=== PATIENT | female | born 1995 | race Caucasian/White ===

== ENCOUNTER 2017-05-04 14:32 | Emergency (ER) | payer OTHER ==
[~2017-05-04] VITALS: Ht 170.2 cm; Wt 51.0 kg
[~2017-05-04 14:32] MED LIST: Docusate Sod/Senna PO; IBUP600 PO
[2017-05-04 14:43] VITALS: BP 121/74; PULSE 94; RESP 18; TEMP 99.5; O2SAT 98
[2017-05-04] MEDS ORDERED: IBUP400T20 PO (14:53)
[2017-05-04] MEDS ORDERED: ADVI200C3 (14:53)
[2017-05-04] MEDS ORDERED: SODIUM CHLOR 0.9% 1000 ML INJ 1,000 ML IV ONE (15:11)
[2017-05-04] MEDS ORDERED: ONDANSETRON HCL 4 MG/2 ML VIAL IVP ONE (15:15)
[2017-05-04] MEDS ORDERED: SODIUM CHLORIDE 0.9% FLUSH 10 ML FLUSH IVF PRN (15:15)
[2017-05-04] MEDS ORDERED: HYDROmorphone HCL PF 1 MG/ML VIAL IVS ONE (15:15)
--- NOTE | 2017-05-04 15:15 | PD ---
HPI Chief Complaint: Headache Time Seen by Provider: 15:11 Travel History International Travel<30 days: No Contact w/Intl Traveler<30days: No Traveled to known affect area: No History of Present Illness HPI Patient presents with complaints of a frontal headache for one day. Denies any history of migraines. Positive nausea and vomiting. Positive photophobia. Denies aura. Currently on her menses, denies . Denies any head trauma. Reports it is the worst headache she's ever had. PFSH Past Medical History Migraines: Yes Tetanus Vaccination: < 5 Years Influenza Vaccination: Yes ?: Not LMP: NOW Past Surgical History Surgical History: No Previous Surgery Social History Alcohol Use: No Tobacco Use: No Substance Use: No Allergies-Medications (Allergen,Severity, Reaction): Coded Allergies: No Known Allergies (Unverified , 05/04/17) Reported Meds & Prescriptions Reported Meds & Active Scripts Active Reported Ibuprofen 400 Mg Tab 400 Mg PO Q4H PRN Advil Migraine (Ibuprofen) 200 Mg Cap Review of Systems General / Constitutional: No: Fever Eyes: No: Visual changes HENT: No: Headaches Cardiovascular: No: Chest Pain or Discomfort Respiratory: No: Shortness of Breath Gastrointestinal: No: Abdominal Pain Genitourinary: No: Dysuria Musculoskeletal: No: Pain Skin: No Rash Neurologic: No: Weakness Psychiatric: No: Depression Endocrine: No: Polydipsia Hematologic/Lymphatic: No: Easy Bruising Physical Exam Narrative GENERAL: Well-nourished, well-developed patient. SKIN: Focused skin assessment warm/dry. HEAD: Normocephalic. EYES: No scleral icterus. No injection or drainage. NECK: Supple, trachea midline. No JVD or lymphadenopathy. CARDIOVASCULAR: Regular rate and rhythm without murmurs, gallops, or rubs. RESPIRATORY: Breath sounds equal bilaterally. No accessory muscle use. GASTROINTESTINAL: Abdomen soft, non-tender, nondistended. MUSCULOSKELETAL: No cyanosis, or edema. BACK: Nontender without obvious deformity. No CVA tenderness. Data Data Last Documented VS Vital Signs Date Time Temp Pulse Resp B/P (MAP) Pulse Ox O2 Delivery O2 Flow Rate FiO2 05/04/17 15:30 83 17 112/60 (77) 05/04/17 14:43 99.5 98 Orders Orders Ecg Monitoring (05/04/17 15:11) Iv Access Insert/Monitor (05/04/17 15:11) Oximetry (05/04/17 15:11) Sodium Chloride 0.9% Flush (Ns Flush) (05/04/17 15:15) Ondansetron Inj (Zofran Inj) (05/04/17 15:15) Hydromorphone Pf Inj (Dilaudid Pf Inj) (05/04/17 15:15) Sodium Chlor 0.9% 1000 Ml Inj (Ns 1000 M (05/04/17 15:11) Ct Brain W/O Iv Contrast(Rout) (05/04/17 15:15) MDM Medical Decision Making Medical Screen Exam Complete: Yes Emergency Medical Condition: Yes Differential Diagnosis CVA, migraine headache, sinusitis Narrative Course Assessment and plan discussed with patient at bedside. Physician Communication Physician Communication Case discussed and care transferred to Amos Singh MD May 04, 2017 15:15
[2017-05-04 15:30] VITALS: BP 112/60; PULSE 83; RESP 17
--- NOTE | 2017-05-04 16:14 | RADRPT ---
EXAM DATE/TIME: 05/04/2017 15:52 [facility] COMPARISON: No previous studies available for comparison. INDICATIONS : Severe headache with vomiting. RADIATION DOSE: 59.73 CTDIvol (mGy) MEDICAL HISTORY : None SURGICAL HISTORY : None. ENCOUNTER: Initial ACUITY: 2 days PAIN SCALE: 8/10 LOCATION: cranial TECHNIQUE: Multiple contiguous axial images were obtained of the head. Using automated exposure control and adj ustment of the mA and/or kV according to patient size, radiation dose was kept as low as reasonably a chievable to obtain optimal diagnostic quality images. DICOM format image data is available electro nically for review and comparison. FINDINGS: CEREBRUM: The ventricles are normal for age. No evidence of midline shift, mass lesion, hemorrhage or acute in farction. No extra-axial fluid collections are seen. POSTERIOR FOSSA: The cerebellum and brainstem are intact. The 4th ventricle is midline. The cerebellopontine angle i s unremarkable. EXTRACRANIAL: The visualized portion of the orbits is intact. SKULL: The calvaria is intact. No evidence of skull fracture. CONCLUSION: Normal examination. Korey Guerra MD on May 04, 2017 at 16:09 Board Certified Radiologist. This report was verified electronically.
--- NOTE | 2017-05-04 16:26 | PD ---
Physical Exam Date Seen by Provider: May 04, 2017 Time Seen by Provider: 16:25 Narrative This 22-year-old female is complaining of headache. She's been seen initially by Dr. Sherman who ordered a CT scan which is negative. His seat some Dilaudid IV fluids and reports some improvement but she also feels some ongoing headache. I will add Toradol and Compazine to the regimen. She does not have a history of migraines but she says she has an aunt that has migraines and she believes her mother also had her. Patient was seen by initially by Dr. Sherman who ordered a CT scan. CT scan has been read as negative. Patient has received intravenous fluids and Zofran and Dilaudid. She reported some recurrence of headache and feels better after some Toradol and Compazine and she is stable for discharge. I suspect this is a migraine headache Data Data Last Documented VS Vital Signs Date Time Temp Pulse Resp B/P (MAP) Pulse Ox O2 Delivery O2 Flow Rate FiO2 05/04/17 16:33 98.4 69 14 113/59 (77) 99 Room Air Orders Orders Ecg Monitoring (05/04/17 15:11) Iv Access Insert/Monitor (05/04/17 15:11) Oximetry (05/04/17 15:11) Sodium Chloride 0.9% Flush (Ns Flush) (05/04/17 15:15) Ondansetron Inj (Zofran Inj) (05/04/17 15:15) Hydromorphone Pf Inj (Dilaudid Pf Inj) (05/04/17 15:15) Sodium Chlor 0.9% 1000 Ml Inj (Ns 1000 M (05/04/17 15:11) Ct Brain W/O Iv Contrast(Rout) (05/04/17 15:15) Ketorolac Inj (Toradol Inj) (05/04/17 16:30) Prochlorperazine Inj (Compazine Inj) (05/04/17 16:30) MDM Medical Record Reviewed: No Supervised Visit with FRANCIS: No Differential Diagnosis Differential includes tension headache, migraine headache Narrative Course CT is negative. Patient has been medicated and is better. Diagnosis Primary Impression: Migraine headache Disposition: 01 DISCHARGE HOME Condition: Stable Christiano Joseph MD May 04, 2017 16:26
[2017-05-04] MEDS ORDERED: PROCHLORPERAZINE INJ 10 MG/2 ML VIAL IV PUSH ONE (16:30)
[2017-05-04] MEDS ORDERED: KETOROLAC TROMETHAMINE 30 MG/ML (IVP) VIAL IV PUSH ONE (16:30)
[2017-05-04 16:33] VITALS: BP 113/59; PULSE 69; RESP 14; TEMP 98.4; O2SAT 99
== END 2017-05-04 17:06 | disposition home or self-care (01) ==
LOC: PHED 14:32
DX: G43.909 Migraine, unspecified, not intractable, without status migrainosus (principal)
CPT/HCPCS: 70450; 96361; 96374; 96375; 99285; J0780; J1170; J1885; J2405; J7030